=== PATIENT | male | born 1990 | race Caucasian/White ===

== ENCOUNTER 2016-10-10 17:40 | Emergency (ER) | payer SELFPAY ==
--- NOTE | ~2016-10-10 | EKG ---
PATIENT: VANESSA CAM UNIT #: [id number] Ventricular Rate: 68 BPM Atrial Rate: 68 BPM P-R Interval: 176 ms QRS Duration: 98 ms Q-T Interval: 418 ms QTC Calculation(Bezet): 444 ms P Maurice: 49 degrees Calculated R Maurice: 48 degrees Calculated T Maurice: 46 degrees Diagnosis Line: Normal sinus rhythm Diagnosis Line: Normal ECG Diagnosis Line: When compared with ECG of 10-OCT-2016 13:12, Diagnosis Line: (unconfirmed) Diagnosis Line: No significant change was found Diagnosis Line: Confirmed by YARELY KENNEDY MD ([id number]) on 10/14/2016 Diagnosis Line: 3:52:59 PM INTERPRETING MD: BRENT POWELL
--- NOTE | ~2016-10-10 | EKG ---
PATIENT: VANESSA CAM UNIT #: [id number] Ventricular Rate: 91 BPM Atrial Rate: 91 BPM P-R Interval: 162 ms QRS Duration: 82 ms Q-T Interval: 360 ms QTC Calculation(Bezet): 442 ms P Derry: 56 degrees Calculated R Derry: 38 degrees Calculated T Derry: 37 degrees Diagnosis Line: Normal sinus rhythm Diagnosis Line: Normal ECG Diagnosis Line: No previous ECGs available Diagnosis Line: Confirmed by YARELY KENNEDY MD ([id number]) on 10/14/2016 Diagnosis Line: 3:49:55 PM INTERPRETING MD: BRENT POWELL
--- NOTE | ~2016-10-10 | CR72 ---
[facility] A Service of [facility] & [facility] RADIOLOGY TEXT RESULTS PATIENT: VANESSA CAM LOCATION: [facility] : 92 UNIT #: [id number] AGE: [address]: Serge Loza DO SEX: M ORDER DR: [id number] [facility] [address] [place], [place] [address] [id number] P MR#: [id number] Acc #: [id number] NAME: VANESSA CAM : 1990 SEX: M STUDY DATE/TIME: 10/10/2016 13:43 UNIT: [facility] ROOM: STUDY DESCRIPTION: CR Chest Single View Portable Attending Physician: Serge Loza D.O. Ordering Physician: Serge Loza D.O. MEDICAL IMAGING REPORT This report is preliminary unless electronic signature is present EXAM Chest portable 10/10/2016 1343 hours HISTORY 26-year-old man with complaint of chest pain since last night. COMPARISON None. FINDINGS Portable upright chest demonstrates normal cardiac, mediastinal and hilar contours. The lungs are well expanded and clear. There is no pleural effusion, pneumothorax or bone lesion. IMPRESSION Normal upright portable chest film. Dictated by... Roshni Fan M.D. THIS IS AN ELECTRONICALLY VERIFIED REPORT Roshni Fan M.D. at 10/11/2016 9:34 AM SUMANTH/ritika TD: 10/10/2016 15:33 JOB #: [id number] MEDICAL IMAGING REPORT Page 1 of 1 COPY
--- NOTE | ~2016-10-10 | US67 ---
[facility] A Service of [facility] RADIOLOGY TEXT RESULTS PATIENT: VANESSA CAM LOCATION: [facility] : 89 UNIT #: [id number] AGE: [address]: Serge Loza DO SEX: M ORDER DR: [id number] [facility] [address] [place], [place] [address] [id number] MR#: [id number] Acc #: [id number] NAME: VANESSA CAM : 1990 SEX: M STUDY DATE/TIME: 10/10/2016 17:58 UNIT: [facility] ROOM: STUDY DESCRIPTION: Gallbladder Attending Physician: Serge Loza D.O. Ordering Physician: Serge Loza D.O. Primary Care Physician: No Primary Care Physician MEDICAL IMAGING REPORT This report is preliminary unless electronic signature is present EXAM Gallbladder ultrasound. DATE OF EXAM 10/10/2016 HISTORY Right upper quadrant pain and epigastric abdomen pain radiating into the chest since 10/09/2016, distended gallbladder on CT scan of the abdomen and pelvis obtained earlier today at 15:41. FINDINGS The liver is homogeneous in echotexture and demonstrates no cystic or solid mass lesions. The intra and extrahepatic bile ducts are not dilated. The gallbladder is normal with no evidence of cholelithiasis, wall thickening or pericholecystic fluid. The common duct measures 5 mm. The pancreas is normal. The right kidney measures 11 cm in longitudinal dimensions. There is no evidence of hydronephrosis. There is increased right renal cortical echogenicity characteristic of medical renal disease. IMPRESSION 1. Normal gallbladder. 2. Increased right renal cortical echogenicity characteristic of medical renal disease. Dictated by... Willie Lopez M.D. THIS IS AN ELECTRONICALLY VERIFIED REPORT Willie Lopez M.D. at 10/11/2016 2:19 PM KRT/jt [facility] A Service of [facility] RADIOLOGY TEXT RESULTS PATIENT: VANESSA CAM LOCATION: [facility] : 92 UNIT #: [id number] AGE: [address]: Serge Loza DO SEX: M ORDER DR: TD: 10/10/2016 19:32 JOB #: [id number] MEDICAL IMAGING REPORT Page 1 of 1 COPY
--- NOTE | ~2016-10-10 | CT2 ---
[facility] A Service of [facility] RADIOLOGY TEXT RESULTS PATIENT: VANESSA CAM LOCATION: [facility] : 92 UNIT #: [id number] AGE: [address]: Serge Loza DO SEX: M ORDER DR: [id number] [facility] [address] [place], [place] [address] [id number] P MR#: [id number] Acc #: [id number] NAME: VANESSA CAM : 1990 SEX: M STUDY DATE/TIME: 10/10/2016 15:41 UNIT: [facility] ROOM: STUDY DESCRIPTION: CT Abd and Pelv W Cont Attending Physician: Serge Loza D.O. Ordering Physician: Serge Loza D.O. MEDICAL IMAGING REPORT This report is preliminary unless electronic signature is present EXAM CT abdomen and pelvis. DATE OF EXAM 10/10/2016 INDICATIONS Chest pain, shortness of air, and abdominal pain that started yesterday. TECHNIQUE Axial images were obtained through the abdomen and pelvis following IV contrast administration. Multiplanar reformats were obtained. This CT exam was performed with one or more of the following radiation dose reduction techniques: automatic exposure control, adjustment of mA and/or kV according to patient size, and iterative reconstruction. COMPARISON No comparison. FINDINGS ABDOMEN: The gallbladder is mildly distended but otherwise normal. There is no biliary obstruction. The solid abdominal organs are normal. Incidental note is made of focal fatty infiltration in the medial segment of the left hepatic lobe. There is no adenopathy or free fluid. The GI tract has a normal unopacified appearance. There is some subtle fat stranding adjacent to the right hemicolon. This could reflect subtle colitis in the appropriate clinical setting. PELVIS: Urinary bladder is decompressed but grossly normal. No free fluid. The GI tract including the appendix has a normal unopacified appearance. Patient is status post umbilical hernia repair. IMPRESSION [facility] A Service of [facility] RADIOLOGY TEXT RESULTS PATIENT: VANESSA CAM LOCATION: [facility] : 92 UNIT #: [id number] AGE: [address]: Serge Loza DO SEX: M ORDER DR: 1. Mildly distended but otherwise normal gallbladder. This of questionable significance. No biliary obstruction. 2. Subtle fat stranding adjacent to the right hemicolon is also equivocal. The adjacent colon appears normal, but a mild degree of colitis in the right hemicolon cannot be completely excluded. The GI tract, including the appendix, is otherwise normal. 3. Remainder of the abdomen and pelvis CT is normal except for changes of umbilical hernia repair. Dictated by... Ross Alvarado Jr., M.D. THIS IS AN ELECTRONICALLY VERIFIED REPORT Ross Alvarado Jr., M.D. at 10/10/2016 11:03 PM ZENA/jose TD: 10/10/2016 17:18 JOB #: [id number] MEDICAL IMAGING REPORT Page 1 of 1 COPY
--- NOTE | ~2016-10-10 | CT16 ---
[facility] A Service of [facility] RADIOLOGY TEXT RESULTS PATIENT: VANESSA CAM LOCATION: [facility] : 92 UNIT #: [id number] AGE: [address]: Serge Loza DO SEX: M ORDER DR: [id number] [facility] [address] [place], [place] [address] [id number] P MR#: [id number] Acc #: [id number] NAME: VANESSA CAM : 1990 SEX: M STUDY DATE/TIME: 10/10/2016 15:41 UNIT: [facility] ROOM: STUDY DESCRIPTION: CT Angio Chest for PE Attending Physician: Serge Loza D.O. Ordering Physician: Serge Loza D.O. MEDICAL IMAGING REPORT This report is preliminary unless electronic signature is present EXAM Chest CTA, 10/10/2016 INDICATIONS Chest pain and shortness of air that started yesterday. TECHNIQUE Axial images were obtained through the chest following IV contrast administration. 3-D reformats were obtained. This CT exam was performed with one or more of the following radiation dose reduction techniques: automatic exposure control, adjustment of mA and/or kV according to patient size, and iterative reconstruction. COMPARISON STUDIES No comparison chest CT. FINDINGS There is no pulmonary embolism or aortic dissection. There is no pleural or pericardial effusion. There is no adenopathy. There is some dependent atelectasis in the lower lobes. The lungs are otherwise clear. For description of findings in the upper abdomen, please see the abdomen and pelvis CT report dictated separately. IMPRESSION No pulmonary embolism or aortic dissection. No active disease except for some mild bilateral dependent atelectasis. Dictated by... Ross Alvarado Jr., M.D. THIS IS AN ELECTRONICALLY VERIFIED REPORT Ross Alvarado Jr., M.D. at 10/10/2016 11:03 PM [facility] A Service of [facility] RADIOLOGY TEXT RESULTS PATIENT: VANESSA CAM LOCATION: [facility] : 89 UNIT #: [id number] AGE: [address]: Serge Loza DO SEX: M ORDER DR: ZENA/kasie TD: 10/10/2016 16:54 JOB #: [id number] MEDICAL IMAGING REPORT Page 1 of 1 COPY
[2016-10-10 13:49] LABS: BASOPHIL% 0.6 % (0-2.5); EOSINOPHIL# 0.2 X10e3 (0-0.7); EOSINOPHIL% 3.7 % (0.0-7.0); HEMATOCRIT 45.2 % (38.0-50.0); HEMOGLOBIN 15.2 gm/dL (13.0-16.0); LYMPHOCYTE# 1.4 X10e3 (1.0-3.5); MEAN CELL VOLUME 85.2 FL (83-96); MEAN CORPUSCULAR HEMOGLOBIN 28.6 PG (28-34); MEAN CORPUSCULAR HGB CONC 33.6 g/dL (30-36); MEAN PLATELET VOLUME 7.9 FL (6.5-11.5); MONOCYTE% 15.6 % (3.0-12.0); NEUTROPHIL# 3.5 X10e3 (1.5-7.1); NEUTROPHIL% 57.1 % (40-75); PLATELET COUNT 176 X10e3 (140-420); RED BLOOD COUNT 5.31 X10e (3.90-5.60); RED CELL DISTRIBUTION WIDTH 12.7 % (11.0-15.5); WHITE BLOOD COUNT 6.1 X10e3 (4.0-10.5)
[2016-10-10 13:50] LABS: DIFF IND NO
[2016-10-10 13:59] LABS: POC - CKMB <1.0 ng/mL (0.0-7.9); POC - TROPONIN <0.05 ng/mL (<=0.05)
[2016-10-10 14:09] LABS: INR 1.1; PARTIAL THROMBOPLASTIN TIME 29.6 SECONDS (23.5-31.3); PROTHROMBIN TIME (PATIENT) 11.7 SECONDS (9.6-11.5)
[2016-10-10 14:14] LABS: ALBUMIN SERUM 4.4 g/dL (3.5-5.0); BILIRUBIN, DIRECT 0.2 mg/dL (0.0-0.2); BILIRUBIN,INDIRECT 0.6 mg/dL (0.0-0.9); BILIRUBIN,TOTAL 0.8 mg/dL (0.2-2.0); CALCIUM SERUM 8.6 mg/dL (8.4-10.2); GLOM FILT RATE Estimated 104.9 mL/min (>60); POTASSIUM 3.2 mmol/L (3.5-5.1); PROTEIN TOTAL SERUM 7.7 g/dL (6.0-8.3)
[2016-10-10 15:52] LABS: POC - CKMB <1.0 ng/mL (0.0-7.9); POC - TROPONIN <0.05 ng/mL (<=0.05)
[2016-10-10 16:04] LABS: AMPHETAMINE POS (NEG); BARBITURATES NEG (NEG); BENZODIAZEPINES NEG (NEG); COCAINE NEG (NEG); MARIJUANA NEG (NEG); OPIATES POS (NEG); TRICYCLIC ANTIDEPRESSANTS NEG (NEG); U METHADONE NEG (NEG)
[2016-10-10 21:22] LABS: POC - CKMB <1.0 ng/mL (0.0-7.9); POC - TROPONIN <0.05 ng/mL (<=0.05)
== END 2016-10-10 22:15 | disposition home or self-care (01) ==
LOC: CED 17:40
PROVIDERS: Emergency Medicine
DX: F15.10 Other stimulant abuse, uncomplicated (principal); F11.10 Opioid abuse, uncomplicated; F17.200 Nicotine dependence, unspecified, uncomplicated; R10.9 Unspecified abdominal pain; R07.9 Chest pain, unspecified
CPT/HCPCS: 36415; 71010; 71275; 74177; 76705; 80048; 80076; 80307; 82553; 83690; 84484; 85025; 85379; 85610; 85730; 93005; 96374; 99284; J1885; Q9967